=== PATIENT | female | born 1995 | race Caucasian/White ===

== ENCOUNTER 2017-04-22 01:03 | Emergency (ER) | payer MEDICAID ==
[~2017-04-22] VITALS: Ht 162.6 cm; Wt 65.8 kg
[~2017-04-22 01:03] MED LIST: BACTRIM DS 8001 TA1 PO; CEFTIN500 MG PO; MACROBID100 M3 PO; NEXIUM40 MG PO; PREDNISONE 20MG20 MG PO; PYRIDIUM200 M2 PO; ZITHROMAX Z PA250 MG PO
[2017-04-22 01:21] LABS: URINE BLOOD NEGATIVE (NEG)
[2017-04-22 01:34] LABS: URINE BILIRUBIN - DIPSTICK NEGATIVE (NEG)
--- NOTE | 2017-04-22 02:01 | Emergency Room Report ---
History of Present Illness Time Seen by MD Howard Presenting Problem in Triage Pt arrived:Walked Presenting Problem:C/O SORE THROAT, BODY ACHES THAT STARTED THIS AM. IS 19 WEEKS ALSO C/O BACK PAIN Onset of symptoms date/time:04/21/17/ or onset unknown for:MEDICAL HX UNKNOWN Treatment Prior to Arrival: DRIVEWAY ATTENDANT Provided by: Sepsis Risk Assessment: Temp: 98.2 B/P: 110/66 MAP: 80 Pulse: 108 Resp: 20 Recent fever? N Clinical Suspician of Infection? N Mental Status: 1 - Regular (Normal Baseline) Sepsis Risk:Possible Sepsis Risk Have you (or family members/close friends) recently traveled outside the [place]? N If Yes, where/when: Have you had exposure to infectious disease within the past month? N TB? Other? Specify: Source patient, RN notes reviewed, old records Exam Limitations no limitations Comment 2 day hx of achey with sore throat but no rash or cough Cardiac Chest Pain Chest pain indicative of cardiac No Timing/Duration this evening Severity moderate ALLERGIES Coded Allergies: No Known Allergies (10/15/15) History Medical History General CAD? No Angina: No VA: No Hypertension? No Hyperlipidemia? No CHF? No DVT? No PE? No COPD? No Asthma? No Anemia? No GERD? No Gastric ulcers? No GI Bleed? No Hernia? No Thyroid Problems? No Hypothyroidism? No CVA? No Seizures? No Diabetes? No Renal Insuffiency? No End Stage Renal Disease? No UTI? No Stones? No GB Disease: No Nephritic Syndrome? No Asplenia? No Hepatitis? No Sickle Cell Disease? No Arthritis? No Migraines? No Cataracts? No Glaucoma? No MRSA? No HIV? No TB? No Anxiety? No Depression? No Cancer? No More? 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 denies: epistaxis. Respiratory denies cough, denies shortness of breath, denies wheezing Cardiovascular denies chest pain, denies palpitations, denies syncope Gastrointestinal denies abdominal pain, denies diarrhea, denies vomiting Genitourinary denies: abnormal vaginal bleeding, dysuria, frequency, hesitancy, hematuria. Musculoskeletal denies back pain, denies joint pain, denies joint swelling, denies neck pain Skin denies rash Psychiatric/Neurological denies headache, denies seizure Physical Exam Vital Signs Vital Signs Date Time Temp Pulse Resp B/P Pulse O2 O2 Flow FiO2 Ox Delivery Rate 04/22 0107 98.2 108 20 110/66 95 - WBC >12,000 or <4,000 or 10% bands? 2 or more SIRS Criteria Met? B/P:110/66 MAP:80 Creatinine >2.0? UA output<0.5ml/kg/hr for 2 hrs? Platelet count >100,000? Lactate >2.0mmol/1? INR >1.2 or PTT > than 60 sec? Evidence of Organ Dysfunction? Provider documented clinical suspician of infection? N Sepsis Criteria Count: 2 Sepsis Risk: Possible Sepsis Risk General Appearance no apparent distress Eye Exam - bilateral eye PERRL, bilateral eye EOMI Ear, Nose, Throat pharyngeal erythema, tm clear Neck supple Respiratory Status No: respiratory distress. Lung Sounds bilateral: lungs clear. 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 No Results/Orders Laboratory Tests 04/22/17114: Influenza Type A Ag NOT DETECTED, Influenza Type B Ag NOT DETECTED, Urine Color YELLOW, Urine Appearance CLEAR, Urine pH 6.0, Ur Specific [place] >= 1.030, Urine Protein NEGATIVE, Urine Ketones NEGATIVE, Urine Blood NEGATIVE, Urine Nitrate NEGATIVE, Urine Bilirubin NEGATIVE, Urine Urobilinogen 0.2, Ur Leukocyte Esterase TRACE H, Urine RBC 3-5, Urine WBC 3-5, Ur Squamous Epith Cells 3-5, Urine Bacteria 1+, Urine Mucus 2+, Urine Glucose NEGATIVE Orders Procedure Date/time Status CULTURE, THROAT 04/22 115 Active URINALYSIS/COMPLETE 08/29 0114 Complete STREP SCREEN THROAT 08/29 0114 Complete INFLUENZA A&B ANTIGENS 04/22 0108 Complete Departure Departure Time of Disposition 212 Disposition DC Home or Self Care(routine) Clinical Impression Primary Impression: Pharyngitis Qualifiers: Pharyngitis/tonsillitis etiology: unspecified etiology Qualified Code: J02.9 - Acute pharyngitis, unspecified Secondary Impressions: Qualifiers: Weeks of gestation: 19 weeks Qualified Code: Z3A.19 - 19 weeks gestation of Condition STABLE Referrals Brittany Casas MD (Family) Patient Instructions DI for Pharyngitis/Tonsillopharyngitis -- Adult Additional Instructions fluids and use meds and call dr sanches today for follow up and pcp Discharge Counseling Counseled pt/family regarding diagnosis, test results, medications/RX, follow up needs Prescriptions Current Visit Scripts CEPHALEXIN (Keflex 500MG Capsule) 500 MG PO Q8H #21 [facility] ED Critical Care Critical Care No at 0216
--- NOTE | 2017-04-22 02:01 | Emergency Room Report ---
History of Present Illness Time Seen by MD Howard Presenting Problem in Triage Pt arrived:Walked Presenting Problem:C/O SORE THROAT, BODY ACHES THAT STARTED THIS AM. IS 19 WEEKS ALSO C/O BACK PAIN Onset of symptoms date/time:04/21/17/ or onset unknown for:MEDICAL HX UNKNOWN Treatment Prior to Arrival: FINANCIAL INTERN Provided by: Sepsis Risk Assessment: Temp: 98.2 B/P: 110/66 MAP: 80 Pulse: 108 Resp: 20 Recent fever? N Clinical Suspician of Infection? N Mental Status: 1 - Regular (Normal Baseline) Sepsis Risk:Possible Sepsis Risk Have you (or family members/close friends) recently traveled outside the [place]? N If Yes, where/when: Have you had exposure to infectious disease within the past month? N TB? Other? Specify: Source patient, RN notes reviewed, old records Exam Limitations no limitations Comment 2 day hx of achey with sore throat but no rash or cough Cardiac Chest Pain Chest pain indicative of cardiac No Timing/Duration this evening Severity moderate ALLERGIES Coded Allergies: No Known Allergies (10/15/15) History Medical History General CAD? No Angina: No [place]: No Hypertension? No Hyperlipidemia? No CHF? No DVT? No PE? No COPD? No Asthma? No Anemia? No GERD? No Gastric ulcers? No GI Bleed? No Hernia? No Thyroid Problems? No Hypothyroidism? No CVA? No Seizures? No Diabetes? No Renal Insuffiency? No End Stage Renal Disease? No UTI? No Stones? No GB Disease: No Nephritic Syndrome? No Asplenia? No Hepatitis? No Sickle Cell Disease? No Arthritis? No Migraines? No Cataracts? No Glaucoma? No MRSA? No HIV? No TB? No Anxiety? No Depression? No Cancer? No More? 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 denies: epistaxis. Respiratory denies cough, denies shortness of breath, denies wheezing Cardiovascular denies chest pain, denies palpitations, denies syncope Gastrointestinal denies abdominal pain, denies diarrhea, denies vomiting Genitourinary denies: abnormal vaginal bleeding, dysuria, frequency, hesitancy, hematuria. Musculoskeletal denies back pain, denies joint pain, denies joint swelling, denies neck pain Skin denies rash Psychiatric/Neurological denies headache, denies seizure Physical Exam Vital Signs Vital Signs Date Time Temp Pulse Resp B/P Pulse O2 O2 Flow FiO2 Ox Delivery Rate 04/22 0107 98.2 108 20 110/66 95 - WBC >12,000 or <4,000 or 10% bands? 2 or more SIRS Criteria Met? B/P:110/66 MAP:80 Creatinine >2.0? UA output<0.5ml/kg/hr for 2 hrs? Platelet count >100,000? Lactate >2.0mmol/1? INR >1.2 or PTT > than 60 sec? Evidence of Organ Dysfunction? Provider documented clinical suspician of infection? N Sepsis Criteria Count: 2 Sepsis Risk: Possible Sepsis Risk General Appearance no apparent distress Eye Exam - bilateral eye PERRL, bilateral eye EOMI Ear, Nose, Throat pharyngeal erythema, tm clear Neck supple Respiratory Status No: respiratory distress. Lung Sounds bilateral: lungs clear. 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 No Results/Orders Laboratory Tests 04/22/17114: Influenza Type A Ag NOT DETECTED, Influenza Type B Ag NOT DETECTED, Urine Color YELLOW, Urine Appearance CLEAR, Urine pH 6.0, Ur Specific [place] >= 1.030, Urine Protein NEGATIVE, Urine Ketones NEGATIVE, Urine Blood NEGATIVE, Urine Nitrate NEGATIVE, Urine Bilirubin NEGATIVE, Urine Urobilinogen 0.2, Ur Leukocyte Esterase TRACE H, Urine RBC 3-5, Urine WBC 3-5, Ur Squamous Epith Cells 3-5, Urine Bacteria 1+, Urine Mucus 2+, Urine Glucose NEGATIVE Orders Procedure Date/time Status CULTURE, THROAT 04/22 115 Active URINALYSIS/COMPLETE 08/29 0114 Complete STREP SCREEN THROAT 08/29 0114 Complete INFLUENZA A&B ANTIGENS 04/22 0108 Complete Departure Departure Time of Disposition 212 Disposition DC Home or Self Care(routine) Clinical Impression Primary Impression: Pharyngitis Qualifiers: Pharyngitis/tonsillitis etiology: unspecified etiology Qualified Code: J02.9 - Acute pharyngitis, unspecified Secondary Impressions: Qualifiers: Weeks of gestation: 19 weeks Qualified Code: Z3A.19 - 19 weeks gestation of Condition STABLE Referrals Brittany Casas MD (Family) Patient Instructions DI for Pharyngitis/Tonsillopharyngitis -- Adult Additional Instructions fluids and use meds and call dr sanches today for follow up and pcp Discharge Counseling Counseled pt/family regarding diagnosis, test results, medications/RX, follow up needs Prescriptions Current Visit Scripts CEPHALEXIN (Keflex 500MG Capsule) 500 MG PO Q8H #21 CAP ED Critical Care Critical Care No at 0216
[2017-04-22] MEDS ORDERED: KEFLEX 500MG.500 MG PO (02:15)
[2017-04-22 02:43] VITALS: BP 102/68
== END 2017-04-22 02:47 | disposition home or self-care (01) ==
LOC: ER 01:03
PROVIDERS: Emergency Medicine
DX: J02.9 Acute pharyngitis, unspecified (principal); Z3A.19 19 weeks gestation of pregnancy